=== PATIENT | female | born 1960 | race Two or more races ===

== ENCOUNTER 2023-07-25 10:11 | Inpatient (IN) | payer OTHER ==
[~2023-07-25] VITALS: Ht 172.7 cm; Wt 63.9 kg
[2023-07-25] MEDS: ACETAMINOPHEN 500 MG TAB PO ONE (10:43)
[2023-07-25 10:45] VITALS: PULSE 125; RESP 23; O2SAT 93
[2023-07-25 10:54] LABS: Hematocrit 32.1 % (36.0-46.0); Mean Corpuscular Hemoglobin 29.3 pg (28.0-32.0); Mean Corpuscular Hgb Conc. 31.1 g/dL (32.0-36.0); Mean Corpuscular Volume 94.2 fL (80.0-100.0); Red Blood Cells 3.41 10^6/uL (4.0-5.20); Red Cell Distribution Width 14.2 % (11.8-14.3); White Blood Cell 29.2 10^3/uL (4.4-10.8)
[2023-07-25 10:57] LABS: Basophils % (manual) 0 (0.0-2.0); Blast Cells 0; Eosinophils % (manual) 0 (0-7); Promyelocytes % 0; Reactive Lymphocytes 0
[2023-07-25 11:19] LABS: Alanine Aminotransferase 18 U/L (7-40); Alkaline Phosphatase 123 U/L (46-116); Anion Gap 14 (5-15); Aspartate Aminotransferase 36 U/L (13-40); BUN/Creatinine Ratio 7.1 (10.0-20.0); Bilirubin, Total 0.5 mg/dL (0.2-1.0); Blood Urea Nitrogen 60 mg/dL (9-23); Calcium 7.7 mg/dL (8.5-10.1); Carbon Dioxide 23 mmol/L (20-30); Chloride 100 mmol/L (98-107); Glucose 86 mg/dL (74-106); Potassium 4.9 mmol/L (3.5-5.1); Sodium 137 mmol/L (136-145); Total Protein 7.9 g/dL (5.7-8.2)
[2023-07-25] MEDS: SODIUM CHLORIDE 0.9% 1,000 ML IVB ONE (11:36)
[2023-07-25] MEDS: SODIUM CHLORIDE 0.9% 1,000 ML IV ONE ×2 (12:05→13:37)
[2023-07-25] MEDS: cefTRIAXone 1GM/50ML D5W 50 ML IV ONE (13:38)
[2023-07-25] MEDS: PIPERACILLIN-TAZOB 3.375GM 100 ML IV ONE (14:20)
[2023-07-25 14:26] LABS: Band Neutrophils % (manual) 4; Lymphocytes % (manual) 5 (10.0-50.0); Metamyelocytes % 4; Monocytes % (manual) 4 (0-12); Myelocytes % 2; Platelet Estimate Decreased
[2023-07-25] MEDS ORDERED: NITROGLYCERIN 0.4 MG SL TAB SL PRN (14:45)
[2023-07-25] MEDS ORDERED: MORPHINE SULFATE INJ 2 MG/ml SYRG IV PRN (14:45)
[2023-07-25] MEDS ORDERED: ACETAMINOPHEN 325 MG TAB PO PRN (14:45)
[2023-07-25 16:35] LABS: INR 1.64 (0.9-1.15); Prothrombin Time 16.7 sec (9.3-11.8)
[2023-07-25] MEDS: MAGNESIUM SULFATE 1GM/100ML 100 ML IV SCH ×2 (17:27→20:29)
[2023-07-25] MEDS: PANTOPRAZOLE 40 MG/10 ML VIAL INJ IV ONE (17:27)
[2023-07-25 19:57] VITALS: PULSE 96; RESP 20; O2SAT 98
[2023-07-25] MEDS ORDERED: HEPARIN SODIUM (PORCINE) 5000 UNITS/ML 1ML VIAL SC SCH (22:00)
[2023-07-25] MEDS: SODIUM CHLORIDE 0.9% 500 ML IV ONE (22:05)
[2023-07-25] MEDS: PIPERACILLIN-TAZOB 2.25GM 50 ML IV SCH (22:15)
[2023-07-26] MEDS: PHENYLEPHRINE IV 250 ML IV SCH (01:17)
[2023-07-26 06:04] LABS: Hemoglobin 9.5 g/dL (12.2-16.2); Mean Corpuscular Volume 96.6 fL (80.0-100.0)
[2023-07-26 06:06] LABS: Hematocrit 30.2 % (36.0-46.0); Mean Corpuscular Hemoglobin 30.4 pg (28.0-32.0); Mean Corpuscular Hgb Conc. 31.5 g/dL (32.0-36.0); Red Blood Cells 3.13 10^6/uL (4.0-5.20); Red Cell Distribution Width 14.9 % (11.8-14.3); White Blood Cell 29.5 10^3/uL (4.4-10.8)
[2023-07-26 06:22] LABS: Alanine Aminotransferase 29 U/L (7-40); Albumin 3.4 g/dL (3.2-4.8); Alkaline Phosphatase 95 U/L (46-116); Anion Gap 14 (5-15); Aspartate Aminotransferase 64 U/L (13-40); BUN/Creatinine Ratio 7.7 (10.0-20.0); Bilirubin, Total 0.3 mg/dL (0.2-1.0); Blood Urea Nitrogen 66 mg/dL (9-23); Calcium 6.7 mg/dL (8.5-10.1); Carbon Dioxide 20 mmol/L (20-30); Chloride 104 mmol/L (98-107); Glucose 76 mg/dL (74-106); Potassium 5.3 mmol/L (3.5-5.1); Sodium 138 mmol/L (136-145); Total Protein 6.7 g/dL (5.7-8.2)
[2023-07-26 06:26] LABS: Basophils % (manual) 0 (0.0-2.0); Blast Cells 0; Eosinophils % (manual) 0 (0-7); Metamyelocytes % 0; Myelocytes % 0; Promyelocytes % 0; Reactive Lymphocytes 0
[2023-07-26 07:30] VITALS: PULSE 99; RESP 14; O2SAT 99
[2023-07-26 08:11] LABS: Band Neutrophils % (manual) 14; Lymphocytes % (manual) 6 (10.0-50.0); Monocytes % (manual) 4 (0-12); Platelet Estimate Decreased; RBC Morphology Normal
[2023-07-26] MEDS ORDERED: cefTRIAXone 1GM/50ML D5W 50 ML IV SCH (09:00)
[2023-07-26] MEDS: PANTOPRAZOLE 40 MG/10 ML VIAL INJ IV SCH (10:39)
[2023-07-26] MEDS: PHENYLEPHRINE INJ 80 MG in SODIUM CHL 0.9% 242 ML IV SCH (17:17)
[2023-07-26 19:30] VITALS: PULSE 88; RESP 20; O2SAT 100
[2023-07-26] MEDS: SODIUM ZIRCONIUM CYCL 10 GM PAK PO ONE (20:32)
[2023-07-26] MEDS: PIPERACILLIN-TAZOB 2.25GM 50 ML IV SCH (22:04)
[2023-07-26 22:21] LABS: Rapid Influenza A Negative (Negative); Rapid Influenza B Negative (Negative)
[2023-07-26 22:22] LABS: COVID19 ANTIGEN SOFIA FIA NEGATIVE (NEGATIVE)
[2023-07-27] MEDS: SODIUM CHL 0.9% 1000 ML BAG XX ONE (07:00)
[2023-07-27 07:45] LABS: Basophils # (auto) 0 10 ^3/uL (0-0.2); Eosinophils # (auto) 0.4 10 ^3/uL (0-0.8); Eosinophils % (auto) 2.3 % (0.0-7.0); Hemoglobin 8.9 g/dL (12.2-16.2); Lymphocytes # (auto) 0.9 10 ^3/uL (0.4-5.4); Monocytes # (auto) 0.9 10 ^3/uL (0-1.3)
[2023-07-27 07:46] LABS: Basophils % (auto) 0.3 % (0.0-2.0); Hematocrit 29.1 % (36.0-46.0); Lymphocytes % (auto) 5.7 % (10.0-50.0); Mean Corpuscular Hemoglobin 30.1 pg (28.0-32.0); Mean Corpuscular Hgb Conc. 30.6 g/dL (32.0-36.0); Mean Corpuscular Volume 98.3 fL (80.0-100.0); Monocytes % (auto) 5.5 % (0.0-12.0); Neutrophils # (auto) 14.1 10 ^3/uL (1.6-8.6); Neutrophils % (auto) 86.2 % (37.0-80.0); Nucleated Red Blood Cells % 0.1 %; Red Blood Cells 2.96 10^6/uL (4.0-5.20); Red Cell Distribution Width 15.4 % (11.8-14.3); White Blood Cell 16.4 10^3/uL (4.4-10.8)
[2023-07-27 07:55] LABS: Chloride 103 mmol/L (98-107); Sodium 135 mmol/L (136-145)
[2023-07-27 08:03] LABS: BUN/Creatinine Ratio 8.1 (10.0-20.0); Glucose 74 mg/dL (74-106)
[2023-07-27 08:07] LABS: Blood Urea Nitrogen 76 mg/dL (9-23)
[2023-07-27 08:12] LABS: Potassium 5.8 mmol/L (3.5-5.1)
[2023-07-27 08:52] LABS: Anion Gap 15 (5-15); Carbon Dioxide 17 mmol/L (20-30)
[2023-07-27 09:20] VITALS: PULSE 92; RESP 19; O2SAT 96
[2023-07-27] MEDS: ALBUMIN 25% 100 ML IV ONE ×2 (11:00)
[2023-07-27 17:30] VITALS: BP 109/60; PULSE 98; RESP 16; RESP 18; TEMP 98; O2SAT 92
[2023-07-27 17:50] VITALS: BP 109/60; PULSE 98; RESP 16; TEMP 98; O2SAT 92
[2023-07-27] MEDS ORDERED: CARV6.2551 PO (18:42)
[2023-07-27] MEDS ORDERED: CINA30TA2 PO (18:42)
[2023-07-27] MEDS ORDERED: AMLO1TAB22 PO (18:42)
[2023-07-27 20:00] VITALS: PULSE 108; RESP 17; O2SAT 95
[2023-07-27 21:07] LABS: Alanine Aminotransferase 24 U/L (7-40); Albumin 2.9 g/dL (3.2-4.8); Alkaline Phosphatase 93 U/L (46-116); Anion Gap 10 (5-15); Aspartate Aminotransferase 33 U/L (13-40); BUN/Creatinine Ratio 5.1 (10.0-20.0); Bilirubin, Total 0.2 mg/dL (0.2-1.0); Calcium 7.5 mg/dL (8.5-10.1); Carbon Dioxide 24 mmol/L (20-30); Chloride 102 mmol/L (98-107); Glucose 119 mg/dL (74-106); Potassium 3.9 mmol/L (3.5-5.1); Sodium 136 mmol/L (136-145); Total Protein 6.4 g/dL (5.7-8.2)
[2023-07-27 21:19] LABS: Blood Urea Nitrogen 28 mg/dL (9-23)
[2023-07-27 21:40] VITALS: BP 119/66; PULSE 114; RESP 22; TEMP 98.8; O2SAT 95
[2023-07-28] VITALS (7 sets, daily range): BP systolic 118–140; BP diastolic 64–70; PULSE 92–102; RESP 17–20; TEMP 97.4–98.5; O2SAT 95–100
[2023-07-29] VITALS (7 sets, daily range): BP systolic 128–140; BP diastolic 66–74; PULSE 92–95; RESP 15–20; TEMP 97.6–98.4; O2SAT 97–99
[2023-07-30 05:00] VITALS: BP 136/72; PULSE 89; RESP 18; TEMP 97.6; O2SAT 98
[2023-07-30] MEDS ORDERED: SODIUM CHL 0.9% 1000 ML BAG XX ONE (07:00)
[2023-07-30 08:00] VITALS: PULSE 78; PULSE 95; RESP 18; O2SAT 97
[2023-07-30 08:45] VITALS: BP 140/77; PULSE 85; RESP 15; TEMP 97.8; O2SAT 99
[2023-07-30] MEDS ORDERED: CARV12.544 PO (10:15)
[2023-07-30] MEDS ORDERED: SEVE800T20 PO (10:15)
[2023-07-30] MEDS ORDERED: PANT40T PO (10:20)
[2023-07-30] MEDS ORDERED: LEVO500T91 PO (10:20)
[2023-07-30] MEDS ORDERED: METR-344 PO (10:20)
[2023-07-30 12:45] VITALS: BP 120/67; PULSE 99; RESP 15; TEMP 98.5; O2SAT 100
[2023-07-30] MEDS ORDERED: EPOETIN ALFA-EPBX 4,000 UNIT/ML VIAL SC ONE (21:00)
== END 2023-07-30 14:00 | disposition home or self-care (01) | DRG 871 ==
LOC: ER 10:11 → EDBD 10:11 → TELE 14:47 → TELE-CENTR 07-27 17:06
PROVIDERS: ADMIT Nurse Practitioner Family; ATTEND Family Medicine
PROC: 5A1D70Z Performance of Urinary Filtration, Intermittent, Less than 6 Hours Per Day (ICD-10-PCS; principal; 2023-07-27)
PROC: 5A1D70Z Performance of Urinary Filtration, Intermittent, Less than 6 Hours Per Day (ICD-10-PCS; 2023-07-30)
DX: A41.9 Sepsis, unspecified organism (principal); E43 Unspecified severe protein-calorie malnutrition; N18.6 End stage renal disease; J18.9 Pneumonia, unspecified organism; I21.A1 Myocardial infarction type 2; R65.21 Severe sepsis with septic shock; I12.0 Hypertensive chronic kidney disease with stage 5 chronic kidney disease or end stage renal disease; K50.90 Crohn's disease, unspecified, without complications; I42.0 Dilated cardiomyopathy; Z20.822 Contact with and (suspected) exposure to COVID-19; I45.10 Unspecified right bundle-branch block; E83.51 Hypocalcemia; I50.82 Biventricular heart failure; E83.42 Hypomagnesemia; R65.20 Severe sepsis without septic shock; D69.6 Thrombocytopenia, unspecified; D63.8 Anemia in other chronic diseases classified elsewhere; E87.5 Hyperkalemia; K62.89 Other specified diseases of anus and rectum; K52.9 Noninfective gastroenteritis and colitis, unspecified; Z68.21 Body mass index [BMI] 21.0-21.9, adult; I25.2 Old myocardial infarction; Z93.3 Colostomy status; Z91.158 Patient's noncompliance with renal dialysis for other reason; Z99.2 Dependence on renal dialysis
CPT/HCPCS: 36415; 71045; 74176; 80048; 80053; 83605; 83735; 84443; 84484; 85007; 85025; 85027; 85610; 87040; 87081; 87340; 87426; 87804; 90935; 93005; 93306; 96361; 96365; 96367; 99291; C9113; G0378; J1642; J2543; P9047